=== PATIENT | female | born 1995 | race American Indian/Alaskan Native ===

== ENCOUNTER 2018-12-06 12:17 | Emergency (ER) | payer MEDICAID, OTHER ==
[2018-12-06 13:24] LABS: Bacteria,Urine 2+ /HPF (Negative); Bilirubin,Urine NEG (Negative); Blood,Urine NEG (Negative); Color,Urine Yellow (Yellow); Mucus,Urine FEW /HPF; Protein,Urine <15 mg/dL mg/dL (Negative); Urobilinogen,Urine < 2.0 mg/dL (<2.0)
[2018-12-06 13:28] LABS: HCG Qualitative,Urine Negative (Negative)
--- NOTE | 2018-12-06 14:15 | Emergency Department Report ---
ED Female HPI - General Chief complaint: Urogenital-Female Stated complaint: VAGINAL DISCHARGE/ABD PAIN/CRAMPS Time Seen by Provider: 12/06/18 14:02 Source: patient Mode of arrival: Ambulatory Limitations: No Limitations - History of Present Illness Initial comments: This is a 23-year-old female nontoxic, well nourished in appearance, no acute signs of distress presents to the ED with c/o of vaginal discharge. Patient denies any vaginal pain or swelling. Patient denies any vaginal ulcers or lesions. Patient denies any abdominal or pelvic pain. Patient denies any nausea, vomiting, chest pain, shortness of breathe, fever, chills, headache, back pain, numbness, tingling, stiff neck. Patient denies any urinary symptoms. Patient denies any allergies or PMH. MD Complaint: vaginal discharge, possible STD -: week(s) Severity scale (0 -10): 0 Improves with: none Worsens with: none Are you Now?: No Associated Symptoms: vaginal discharge. denies: vaginal bleeding, abdominal pain, nausea/vomiting, fever/chills, headaches, loss of appetite, dysuria, hematuria, rash, seizure, shortness of breath, syncope, weakness - Related Data Sexually active: Yes Previous Rx's Medication Instructions Recorded Last Taken Type metroNIDAZOLE [Flagyl] 500 mg PO Q12HR #14 tab 12/06/18 Unknown Rx Allergies Allergy/AdvReac Type Severity Reaction Status Date / Time No Known Allergies Allergy Verified 12/22/14 09:17 ED Review of Systems ROS: Stated complaint: VAGINAL DISCHARGE/ABD PAIN/CRAMPS Other details as noted in HPI Constitutional: denies: chills, fever Eyes: denies: eye pain, eye discharge, vision change ENT: denies: ear pain, throat pain Respiratory: denies: cough, shortness of breath, wheezing Cardiovascular: denies: chest pain, palpitations Endocrine: no symptoms reported Gastrointestinal: denies: abdominal pain, nausea, diarrhea Genitourinary: discharge. denies: urgency, dysuria Musculoskeletal: denies: back pain, joint swelling, arthralgia Skin: denies: rash, lesions Neurological: denies: headache, weakness, paresthesias Psychiatric: denies: anxiety, depression Hematological/Lymphatic: denies: easy bleeding, easy bruising ED Past Medical Hx - Past Medical History Previous Medical History?: No - Surgical History Past Surgical History?: Yes Additional Surgical History: - Social History Smoking Status: Never Smoker Substance Use Type: None - Medications Home Medications: Home Medications Medication Instructions Recorded Confirmed Last Taken Type metroNIDAZOLE [Flagyl] 500 mg PO Q12HR #14 tab 12/06/18 Unknown Rx ED Physical Exam - General Limitations: No Limitations General appearance: alert, in no apparent distress - Head Head exam: Present: atraumatic, normocephalic - Eye Eye exam: Present: normal appearance - Neck Neck exam: Present: normal inspection, full ROM - Respiratory Respiratory exam: Present: normal lung sounds bilaterally. Absent: respiratory distress, wheezes, rales, rhonchi, stridor, chest wall tenderness, accessory muscle use, decreased breath sounds, prolonged expiratory - Cardiovascular Cardiovascular Exam: Present: regular rate, normal rhythm, normal heart sounds. Absent: bradycardia, tachycardia, irregular rhythm, systolic murmur, diastolic murmur, rubs, gallop - GI/Abdominal GI/Abdominal exam: Present: soft, normal bowel sounds. Absent: distended, tenderness, guarding, rebound, rigid, diminished bowel sounds - External exam: Present: normal external exam, other (utilities operator Marion manager multicultural present during exam). Absent: erythema, swelling, lesions, lacerations, ecchymosis, bleeding Speculum exam: Present: cervical discharge, other (utilities operator [place] manager multicultural present during exam). Absent: erythema, vaginal discharge, vaginal bleeding, foreign body, tissue, laceration Bi-manual exam: Present: normal bi-manual exam, other (utilities operator [place] pa ramedic present during exam). Absent: cervical motion tendernes, adnexal tenderness, adnexal mass, uterine enlargement, uterine tenderness - Extremities Exam Extremities exam: Present: normal inspection, full ROM, normal capillary refill - Back Exam Back exam: Present: normal inspection, full ROM. Absent: tenderness, CVA tenderness (R), CVA tenderness (L), muscle spasm, paraspinal tenderness, vertebral tenderness, rash noted - Neurological Exam Neurological exam: Present: alert, oriented X3 - Psychiatric Psychiatric exam: Present: normal affect, normal mood - Skin Skin exam: Present: warm, dry, intact, normal color. Absent: rash ED Course Vital Signs 12/06/18 12:34 Temperature 98.4 F Pulse Rate 81 Respiratory 16 Rate Blood Pressure 115/61 O2 Sat by Pulse 98 Oximetry - Reevaluation(s) Reevaluation #1: 12/06/18 14:18 Patient is speaking in full sentences with no signs of distress noted. ED Medical Decision Making - Medical Decision Making This is a 23-year-old female that presents with possible STD and Trichomonas. Patient is stable was examined by me. There is no abdominal tenderness. No pelvic pain. UA obtained. Wet prep obtained. Gonorrhea chlamydia swab pending. Patient was instructed to return in 3-5 days for GC results. Patient wanted empirical treatment so patient received 250 mg Rocephin and 1 g of azithromycin by mouth. Patient was instructed to Follow-up with a primary care doctor in 3-5 days or if symptoms worsen and continue return to emergency room as soon as possible. At time of discharge, the patient does not seem toxic or ill in appearance. No acute signs of distress noted. Patient agrees to discharge treatment plan of care. No further questions noted by the patient. Critical care attestation.: If time is entered above; I have spent that time in minutes in the direct care of this critically ill patient, excluding procedure time. ED Disposition Clinical Impression: Trichomonas vaginitis, Possible exposure to STD Disposition: DC-01 TO HOME OR SELFCARE Is pt being admited?: No Does the pt Need Aspirin: No Condition: Stable Instructions: Trichomoniasis (ED), Safe Sex (ED) Additional Instructions: Follow-up with a primary care doctor in 3-5 days or if symptoms worsen and continue return to emergency room as soon as possible. Return in 3-5 daysfor gonorrhea chlamydia results. Do not consume any alcohol while taking Flagyl. Prescriptions: metroNIDAZOLE [Flagyl] 500 mg PO Q12HR #14 tab Referrals: JULIENNE MCELROY [Primary Care Provider] - 3-5 Days PRIMARY CAREMD [Referring] - 3-5 Days ABY MORALES MD [Staff Physician] - 3-5 Days [facility] [Outside] - 3-5 Days [facility] [Outside] - 3-5 Days Forms: Work/School Release Form(ED)
[2018-12-06] MEDS ORDERED: ROCEPHIN IM ONE (15:05)
[2018-12-06] MEDS ORDERED: XYLOCAINE 1% MPF 5 mL INFILTRATI ONE (15:05)
[2018-12-06] MEDS ORDERED: ZITHROMAX PO ONE (15:05)
[2018-12-06 15:33] VITALS: BP 115/61
== END 2018-12-06 16:08 | disposition home or self-care (01) ==
LOC: ED 12:17
DX: A59.01 Trichomonal vulvovaginitis (principal)
CPT/HCPCS: 81001; 81025; 87210; 87591; 96372; 99284; J0696

== ENCOUNTER 2019-04-11 09:19 | Emergency (ER) | payer SELFPAY ==
[2019-04-11 09:27] VITALS: BP 132/47
--- NOTE | 2019-04-11 09:54 | Emergency Department Report ---
ED Female HPI - General Chief complaint: Abdominal Pain Stated complaint: ABD PAIN Time Seen by Provider: 04/11/19 09:51 Source: patient Mode of arrival: Ambulatory Limitations: No Limitations - History of Present Illness Initial comments: Is is a 23-year-old -[place] female who presents to the emergency room with pelvic cramping and vaginal discharge for 2 weeks. Last menstrual period was 03/25/2019, A2. Patient reports a history of irregular menses. She reports foul-smelling white vaginal discharge, urinary frequency. She denies dysuria, nausea, vomiting, diarrhea, or radiating pain. MD Complaint: vaginal discharge, pelvic pain, possible STD Onset/Timin -: week(s) Location: suprapubic Radiation: non-radiating Severity: mild Severity scale (0 -10): 4 Quality: cramping Consistency: intermittent Improves with: none Worsens with: none Are you Now?: No Last Menstrual Period: 03/25/19 EDC: 12/30/19 Associated Symptoms: vaginal discharge, abdominal pain. denies: vaginal bleeding, nausea/vomiting, fever/chills, headaches, loss of appetite, dysuria, hematuria, rash, seizure, shortness of breath, syncope, weakness - Related Data Sexually active: Yes : 2 Para: 0 A: 2 Previous Rx's Medication Instructions Recorded Last Taken Type metroNIDAZOLE [Flagyl] 500 mg PO Q12HR #14 tab 12/06/18 Unknown Rx Fluconazole [Diflucan TAB] 150 mg PO ONCE #1 tablet 04/11/19 Unknown Rx metroNIDAZOLE [Flagyl TAB] 500 mg PO Q12HR #14 tab 04/11/19 Unknown Rx Allergies Allergy/AdvReac Type Severity Reaction Status Date / Time No Known Allergies Allergy Verified 12/22/14 09:17 ED Review of Systems ROS: Stated complaint: ABD PAIN Other details as noted in HPI Constitutional: denies: chills, fever Respiratory: denies: cough, shortness of breath, wheezing Cardiovascular: denies: chest pain, palpitations Gastrointestinal: abdominal pain. denies: nausea, diarrhea Genitourinary: discharge. denies: urgency, dysuria Neurological: denies: headache, weakness, paresthesias Psychiatric: denies: anxiety, depression ED Past Medical Hx - Past Medical History Previous Medical History?: No - Surgical History Past Surgical History?: Yes Additional Surgical History: - Social History Smoking Status: Never Smoker Substance Use Type: Alcohol - Medications Home Medications: Home Medications Medication Instructions Recorded Confirmed Last Taken Type metroNIDAZOLE [Flagyl] 500 mg PO Q12HR #14 tab 12/06/18 Unknown Rx Fluconazole [Diflucan TAB] 150 mg PO ONCE #1 tablet 04/11/19 Unknown Rx metroNIDAZOLE [Flagyl TAB] 500 mg PO Q12HR #14 tab 04/11/19 Unknown Rx ED Physical Exam - General Limitations: No Limitations General appearance: alert, in no apparent distress - Respiratory Respiratory exam: Present: normal lung sounds bilaterally. Absent: respiratory distress - Cardiovascular Cardiovascular Exam: Present: regular rate, normal rhythm. Absent: systolic murmur, diastolic murmur, rubs, gallop - GI/Abdominal GI/Abdominal exam: Present: soft, normal bowel sounds. Absent: distended, tenderness, guarding, rebound, rigid, organomegaly, mass, bruit, pulsatile mass - Back Exam Back exam: Absent: CVA tenderness (R), CVA tenderness (L) - Neurological Exam Neurological exam: Present: alert, oriented X3, normal gait - Psychiatric Psychiatric exam: Present: normal affect, normal mood - Skin Skin exam: Present: warm, dry, intact, normal color. Absent: rash ED Course Vital Signs 04/11/19 04/11/19 09:24 09:41 Temperature 98 F Pulse Rate 84 Respiratory 18 16 Rate Blood Pressure 132/47 O2 Sat by Pulse 98 Oximetry ED Medical Decision Making - Lab Data Lab Results 04/11/19 Range/Units 10:17 Urine Color Yellow (Yellow) Urine Turbidity Hazy (Clear) Urine pH 7.0 (5.0-7.0) Ur Specific [place] 1.024 (1.003-1.030) Urine Protein <15 mg/dl (Negative) mg/dL Urine Glucose (UA) Neg (Negative) mg/dL Urine Ketones Neg (Negative) mg/dL Urine Blood Neg (Negative) Urine Nitrite Neg (Negative) Ur Reducing Substances Not Reportable Urine Bilirubin Neg (Negative) Urine Ictotest Not Reportable Urine Urobilinogen 2.0 (<2.0) mg/dL Ur Leukocyte Esterase Neg (Negative) Urine WBC (Auto) 1.0 (0.0-6.0) /HPF Urine RBC (Auto) 1.0 (0.0-6.0) /HPF U Epithel Cells (Auto) 1.0 (0-13.0) /HPF Amorphous Crystals 1+ Urine Mucus 3+ /HPF Urine HCG, Qual Negative (Negative) - Medical Decision Making This is a 23-year-old -[place] female who presents with vaginal discharge for 2 weeks. Patient was examined by me. Vitals are stable and in no acute distress. A pelvic exam was performed, wet prep and gonorrhea and chlamydia obtained. Wet prep positive for clue cells and yeast. Urinalysis and urine tests are unremarkable. Patient will be treated for bacterial vaginitis and candidiasis. Start metronidazole and diflucan. Discharged home in stable condition. Discussed prevention options. F/U with PCP or Health Department. Critical care attestation.: If time is entered above; I have spent that time in minutes in the direct care of this critically ill patient, excluding procedure time. ED Disposition Clinical Impression: Vaginal discharge, Pelvic pain, Bacterial vaginitis, Yeast infection of the vagina Disposition: TO HOME OR SELFCARE Is pt being admited?: No Does the pt Need Aspirin: No Condition: Stable Instructions: Abdominal Pain (ED), Bacterial Vaginosis (ED), Vulvovaginal Candidiasis (ED) Additional Instructions: Avoid drinking alcohol while taking antibiotics and for 24 hours after completion. Continue safe sexual intercourse. Follow up with Primary Care Provider or health department. Prescriptions: Fluconazole [Diflucan TAB] 150 mg PO ONCE #1 tablet metroNIDAZOLE [Flagyl TAB] 500 mg PO Q12HR #14 tab Referrals: [facility] [Outside] - 3-5 Days [facility] [Provider Group] - 3-5 Days [facility] [Provider Group] - 3-5 Days Forms: STI Treatment and Prevention Time of Disposition: 11:37
[2019-04-11 10:39] LABS: HCG Qualitative,Urine Negative (Negative)
[2019-04-11 11:24] LABS: Amorphous Crystals,Urine 1+; Bilirubin,Urine NEG (Negative); Blood,Urine NEG (Negative); Color,Urine Yellow (Yellow); Mucus,Urine 3+ /HPF; Protein,Urine <15 mg/dL mg/dL (Negative)
== END 2019-04-11 11:49 | disposition home or self-care (01) ==
LOC: ED 09:19
DX: N76.0 Acute vaginitis (principal); B96.89 Other specified bacterial agents as the cause of diseases classified elsewhere
CPT/HCPCS: 81001; 81025; 87210; 87591; 99284

== ENCOUNTER 2019-08-22 10:27 | Emergency (ER) | payer SELFPAY ==
[2019-08-22 10:57] VITALS: BP 119/74
--- NOTE | 2019-08-22 11:31 | Emergency Department Report ---
ED Female HPI - General Chief complaint: Vaginal Bleeding Stated complaint: ABD PAIN/POSITIVE PREG TEST Time Seen by Provider: 08/22/19 10:54 Source: patient Mode of arrival: Ambulatory Limitations: No Limitations - History of Present Illness Initial comments: 23-year-old female presents to the hospital complaining of positive test and vaginal bleeding. Patient had a positive home test yesterday with LMP July 08. Since yesterday patient has had mild intermittent suprapubic cramping abdominal pain and vaginal spotting. 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 Pt is 6 weeks and 3 days by dates. Patient's DEVELOPER ANALYST is not affiliated as per patient. - Related Data Previous Rx's Medication Instructions Recorded Last Taken Type metroNIDAZOLE [Flagyl] 500 mg PO Q12HR #14 tab 12/06/18 Unknown Rx Fluconazole [Diflucan TAB] 150 mg PO ONCE #1 tablet 04/11/19 Unknown Rx metroNIDAZOLE [Flagyl TAB] 500 mg PO Q12HR #14 tab 04/11/19 Unknown Rx Ibuprofen [Motrin] 600 mg PO Q8H PRN #30 tablet 08/22/19 Unknown Rx Allergies Allergy/AdvReac Type Severity Reaction Status Date / Time No Known Allergies Allergy Verified 08/22/19 10:29 ED Review of Systems ROS: Stated complaint: ABD PAIN/POSITIVE PREG TEST Other details as noted in HPI Comment: All other systems reviewed and negative ED Past Medical Hx - Past Medical History Previous Medical History?: No - Surgical History Additional Surgical History: - Social History Smoking Status: Never Smoker Substance Use Type: Alcohol - Medications Home Medications: Home Medications Medication Instructions Recorded Confirmed Last Taken Type metroNIDAZOLE [Flagyl] 500 mg PO Q12HR #14 tab 12/06/18 Unknown Rx Fluconazole [Diflucan TAB] 150 mg PO ONCE #1 tablet 04/11/19 Unknown Rx metroNIDAZOLE [Flagyl TAB] 500 mg PO Q12HR #14 tab 04/11/19 Unknown Rx Ibuprofen [Motrin] 600 mg PO Q8H PRN #30 tablet 08/22/19 Unknown Rx ED Physical Exam - General Limitations: No Limitations - Other Other exam information: Gen.: No acute distress Head: Atraumatic Eyes: Normal appearance ENT: Moist mucous membranes Neck: Normal appearance, no posterior midline tenderness, no meningismus Chest: Clear to auscultation bilaterally Cardiovascular: Regular rate and rhythm Abdomen: Normal appearance, soft, mild suprapubic tenderness, no rebound or guarding, normal bowel sounds Back: Normal appearance, nontender Extremity: Full range of motion, normal appearance Neuro: Alert, clear speech, no focal motor or sensory deficit Psychiatric: Appropriate Skin: No rash ED Course Vital Signs 08/22/19 10:30 Temperature 97.7 F Pulse Rate 85 Respiratory 18 Rate Blood Pressure 119/74 [Right] O2 Sat by Pulse 95 Oximetry ED Medical Decision Making - Lab Data Result diagrams: 08/22/19 11:56 Lab Results 08/22/19 08/22/19 08/22/19 Range/Units 11:10 11:10 11:56 WBC 7.9 (4.5-11.0) K/mm3 RBC 4.28 (3.65-5.03) M/mm3 Hgb 11.4 (10.1-14.3) gm/dl Hct 35.2 (30.3-42.9) % MCV 82 (79-97) fl MCH 27 L (28-32) pg MCHC 33 (30-34) % RDW 14.9 (13.2-15.2) % Plt Count 220 (140-440) K/mm3 Lymph % (Auto) Surgical Oncologist [place] % (Auto) Surgical Oncologist Eos % (Auto) Surgical Oncologist Baso % (Auto) Surgical Oncologist Lymph # Surgical Oncologist [place] # Surgical Oncologist Eos # Surgical Oncologist Baso # Surgical Oncologist Seg Neutrophils % Surgical Oncologist Seg Neutrophils # Surgical Oncologist HCG, Quant < 2 (0-4) mIU/mL Blood Type O POSITIVE Antibody Screen Negative - Medical Decision Making neg hcg minimal pain Diagnosis of miscarriage versus false positive test f/u advised motrin prn pain o+ blood type - Differential Diagnosis miscarriage, ectopic, menses, threatened miscarriage Critical Care Time: No Critical care attestation.: If time is entered above; I have spent that time in minutes in the direct care of this critically ill patient, excluding procedure time. ED Disposition Clinical Impression: Vaginal spotting, Negative test Disposition: TO HOME OR SELFCARE Is pt being admited?: Yes Condition: Stable Instructions: Spontaneous Miscarriage (ED), Menstruation (ED) Additional Instructions: Take the medication as prescribed. Follow-up with your doctor or with the doctor/clinic provided. Return if symptoms worsen as indicated by your discharge instructions. Prescriptions: Ibuprofen [Motrin] 600 mg PO Q8H PRN #30 tablet PRN Reason: Pain Referrals: PRIMARY CARE, [Primary Care Provider] - 3-5 Days ETHAN CASTILLO MD [Staff Physician] - 3-5 Days (og/fiber optic technician ) Time of Disposition: 12:28
[2019-08-22 12:17] LABS: Hematocrit 35.2 % (30.3-42.9); Hemoglobin 11.4 gm/dl (10.1-14.3); Mean Corpuscular HGB Conc 33 % (30-34); Mean Corpuscular Volume 82 fl (79-97); Platelet Count 220 K/mm3 (140-440); Red Blood Count 4.28 M/mm3 (3.65-5.03); Red Cell Distribution Width 14.9 % (13.2-15.2)
[2019-08-22 13:38] LABS: Total Cells Counted 100
[2019-08-22 13:39] LABS: Anisocytosis 1+; Large Platelets Few
== END 2019-08-22 12:42 | disposition home or self-care (01) ==
LOC: ED 10:27
DX: N93.9 Abnormal uterine and vaginal bleeding, unspecified (principal); Z79.899 Other long term (current) drug therapy; Z32.02 Encounter for pregnancy test, result negative
CPT/HCPCS: 36415; 84702; 85007; 85025; 86850; 86900; 86901

== ENCOUNTER 2021-11-25 14:12 | Emergency (ER) | payer SELFPAY ==
[2021-11-25 14:51] LABS: Basophils % (Auto) 0.4 % (0.0-1.8); Eosinophils # (Auto) 0.1 K/mm3 (0.0-0.4); Eosinophils % (Auto) 0.7 % (0.0-4.3); Hematocrit 34.4 % (30.3-42.9); Hemoglobin 10.9 gm/dl (10.1-14.3); Lymphocytes % (Auto) 11.5 % (13.4-35.0); Mean Corpuscular HGB Conc 32 % (30-34); Mean Corpuscular Volume 79 fl (79-97); Monocytes # (Auto) 0.9 K/mm3 (0.0-0.8); Monocytes % (Auto) 10.2 % (0.0-7.3); Platelet Count 245 K/mm3 (140-440); Red Blood Count 4.36 M/mm3 (3.65-5.03); Red Cell Distribution Width 15.5 % (13.2-15.2)
[2021-11-25 15:13] LABS: BUN/Creatinine Ratio 10; Blood Urea Nitrogen 8 mg/dL (7-17); Calcium 9.3 mg/dL (8.4-10.2); Hemolysis Index 4
[2021-11-25] MEDS ORDERED: POTASSIUM CHLORIDE ER 20 MEQ TAB PO ONE (15:15)
[2021-11-25 15:45] LABS: Bacteria,Urine 1+ /HPF (Negative); Bilirubin,Urine NEG (Negative); Blood,Urine NEG (Negative); Color,Urine Yellow (Yellow); Mucus,Urine 3+ /HPF; Protein,Urine <15 mg/dL mg/dL (Negative); Urobilinogen,Urine < 2.0 mg/dL (<2.0)
[2021-11-25 15:56] LABS: HCG Qualitative,Urine Negative (Negative)
--- NOTE | 2021-11-25 16:13 | Emergency Department Report ---
ED General Adult HPI - General Chief complaint: Abdominal Pain Stated complaint: ABD PAIN Time Seen by Provider: 11/25/21 14:28 Source: patient Mode of arrival: Ambulatory Limitations: No Limitations - History of Present Illness Initial comments: 26-year-old -[place] female patient presents with complaints of lower abdominal pain and vaginal discharge x2 weeks. She states the discharge is a white milky consistency and not odorous. She denies any dysuria/hematuria/urinary frequency, dyspareunia, vaginal bleeding, or fever/chills/sweats. She rates her current pain as a 5/10 in severity and states it is intermittent and cramping in nature. No past medical history per patient. She denies the pain radiating into her back or in her flank area. NKDA per patient - Related Data Previous Rx's Medication Instructions Recorded Last Taken Type metroNIDAZOLE [Flagyl] 500 mg PO Q12HR #14 tab 12/06/18 Unknown Rx Fluconazole (Nf) [Diflucan TAB] 150 mg PO ONCE #1 tablet 04/11/19 Unknown Rx metroNIDAZOLE [Flagyl TAB] 500 mg PO Q12HR #14 tab 04/11/19 Unknown Rx Ibuprofen [Motrin] 600 mg PO Q8H PRN #30 tablet 08/22/19 Unknown Rx Doxycycline Monohydrate 100 mg PO BID 14 Days #28 cap 11/25/21 Unknown Rx [Doxycycline Monohydrate CAP] Fluconazole [Diflucan TAB] 200 mg PO QDAY PRN #1 tablet 11/25/21 Unknown Rx metroNIDAZOLE [Flagyl] 500 mg PO Q12HR 7 Days #14 tab 11/25/21 Unknown Rx Allergies Allergy/AdvReac Type Severity Reaction Status Date / Time No Known Allergies Allergy Verified 08/22/19 10:29 ED Review of Systems ROS: Stated complaint: ABD PAIN Other details as noted in HPI Constitutional: denies: chills, fever Respiratory: denies: cough, shortness of breath Cardiovascular: denies: chest pain Gastrointestinal: abdominal pain. denies: nausea, vomiting, diarrhea, constipation, hematemesis, melena Genitourinary: as per HPI Skin: denies: change in color Neurological: denies: headache Hematological/Lymphatic: denies: swollen glands ED Past Medical Hx - Past Medical History Previous Medical History?: No - Surgical History Past Surgical History?: No Additional Surgical History: - Social History Smoking Status: Never Smoker Substance Use Type: Alcohol - Medications Home Medications: Home Medications Medication Instructions Recorded Confirmed Last Taken Type metroNIDAZOLE [Flagyl] 500 mg PO Q12HR #14 tab 12/06/18 Unknown Rx Fluconazole (Nf) [Diflucan TAB] 150 mg PO ONCE #1 tablet 04/11/19 Unknown Rx metroNIDAZOLE [Flagyl TAB] 500 mg PO Q12HR #14 tab 04/11/19 Unknown Rx Ibuprofen [Motrin] 600 mg PO Q8H PRN #30 tablet 08/22/19 Unknown Rx Doxycycline Monohydrate 100 mg PO BID 14 Days #28 cap 11/25/21 Unknown Rx [Doxycycline Monohydrate CAP] Fluconazole [Diflucan TAB] 200 mg PO QDAY PRN #1 tablet 11/25/21 Unknown Rx metroNIDAZOLE [Flagyl] 500 mg PO Q12HR 7 Days #14 tab 11/25/21 Unknown Rx ED Physical Exam - General Limitations: No Limitations General appearance: alert, in no apparent distress - Head Head exam: Present: atraumatic, normocephalic - Eye Eye exam: Present: normal appearance - Neck Neck exam: Present: normal inspection - Respiratory Respiratory exam: Absent: respiratory distress - Cardiovascular Cardiovascular Exam: Present: regular rate - GI/Abdominal GI/Abdominal exam: Present: soft, tenderness (Mild), normal bowel sounds. Absent: distended, guarding, rebound, rigid - Back Exam Back exam: Absent: CVA tenderness (R), CVA tenderness (L) - Neurological Exam Neurological exam: Present: alert, oriented X3, normal gait - Psychiatric Psychiatric exam: Present: normal affect, normal mood - Skin Skin exam: Present: warm, dry, intact, normal color. Absent: rash ED Course Vital Signs 11/25/21 11/25/21 14:19 14:47 Temperature 97.9 F Pulse Rate 65 Respiratory 16 Rate Blood Pressure 82/66 134/66 [Right] O2 Sat by Pulse 98 Oximetry ED Medical Decision Making - Lab Data Result diagrams: 11/25/21 14:40 11/25/21 14:40 Lab Results 11/25/21 11/25/21 11/25/21 Range/Units 14:40 14:40 Unknown WBC 8.6 (4.5-11.0) K/mm3 RBC 4.36 (3.65-5.03) M/mm3 Hgb 10.9 (10.1-14.3) gm/dl Hct 34.4 (30.3-42.9) % MCV 79 (79-97) fl MCH 25 L (28-32) pg MCHC 32 (30-34) % RDW 15.5 H (13.2-15.2) % Plt Count 245 (140-440) K/mm3 Lymph % (Auto) 11.5 L (13.4-35.0) % Angelina % (Auto) 10.2 H (0.0-7.3) % Eos % (Auto) 0.7 (0.0-4.3) % Baso % (Auto) 0.4 (0.0-1.8) % Lymph # (Auto) 1.0 L (1.2-5.4) K/mm3 Angelina # (Auto) 0.9 H (0.0-0.8) K/mm3 Eos # (Auto) 0.1 (0.0-0.4) K/mm3 Baso # (Auto) 0.0 (0.0-0.1) K/mm3 Seg Neutrophils % 77.2 H (40.0-70.0) % Seg Neutrophils # 6.6 (1.8-7.7) K/mm3 Sodium 133 L (137-145) mmol/L Potassium 3.3 L (3.6-5.0) mmol/L Chloride 98.1 (98-107) mmol/L Carbon Dioxide 25 (22-30) mmol/L Anion Gap 13 mmol/L BUN 8 (7-17) mg/dL Creatinine 0.8 (0.6-1.2) mg/dL Estimated GFR > 60 ml/min BUN/Creatinine Ratio 10 % Glucose 86 (65-100) mg/dL Calcium 9.3 (8.4-10.2) mg/dL Urine Color Yellow (Yellow) Urine Turbidity Cloudy (Clear) Urine pH 5.0 (5.0-7.0) Ur Specific [place] 1.019 (1.003-1.030) Urine Protein <15 mg/dl (Negative) mg/dL Urine Glucose (UA) Neg (Negative) mg/dL Urine Ketones Neg (Negative) mg/dL Urine Blood Neg (Negative) Urine Nitrite Neg (Negative) Urine Bilirubin Neg (Negative) Urine Urobilinogen < 2.0 (<2.0) mg/dL Ur Leukocyte Esterase Tr (Negative) Urine WBC (Auto) 9.0 H (0.0-6.0) /HPF Urine RBC (Auto) 1.0 (0.0-6.0) /HPF U Epithel Cells (Auto) 34.0 H (0-13.0) /HPF Urine Bacteria (Auto) 1+ (Negative) /HPF Urine Mucus 3+ /HPF Urine HCG, Qual Negative (Negative) - Medical Decision Making 26-year-old -[place] female patient presents with complaints of lower abdominal pain and vaginal discharge x2 weeks. She states the discharge is a white milky consistency and not odorous. She denies any dysuria/hematuria/uri nary frequency, dyspareunia, vaginal bleeding, or fever/chills/sweats. She rates her current pain as a 5/10 in severity and states it is intermittent and cramping in nature. No past medical history per patient. She denies the pain radiating into her back or in her flank area. NKDA per patient Blood pressure initially 88/66. Blood work is normal. Repeat blood pressure is 134/66. UA shows 9 WBCs. Patient declined pelvic exam. Given symptoms, will cover for PID. Recommend she follows up with her primary care doctor, an urgent care, or the health department for full STI testing. Patient also informed to have her partner tested and treated and to refrain from any sexual intercourse f or 3 weeks minimum. She is otherwise well-appearing and her vitals are normal. Patient is stable for discharge home. Discussed in detail signs and symptoms that should prompt immediate return to the ED, she verbalizes understanding Critical care attestation.: If time is entered above; I have spent that time in minutes in the direct care of this critically ill patient, excluding procedure time. ED Disposition Clinical Impression: Vaginal discharge, Pelvic pain Disposition: HOME / SELF CARE / HOMELESS Is pt being admited?: No Condition: Stable Instructions: Abdominal Pain (ED), Pelvic Pain, Female, [id number], Pelvic Inflammatory Disease, [id number] Additional Instructions: I recommend you take a daily probiotic Prescriptions: Fluconazole [Diflucan TAB] 200 mg PO QDAY PRN #1 tablet PRN Reason: yeast infection Doxycycline Monohydrate [Doxycycline Monohydrate CAP] 100 mg PO BID 14 Days #28 cap metroNIDAZOLE [Flagyl] 500 mg PO Q12HR 7 Days #14 tab Referrals: [facility] [Provider Group] - 3-5 Days [facility] [Outside] - 2-3 Days (STD testing) Forms: Work/School Release Form(ED)
[2021-11-25 17:09] VITALS: BP 124/78
[2021-11-25] MEDS ORDERED: LIDOCAINE-MPF (1%) 10 MG/1 ML VIAL 5 ML INFILTRATI ONE (17:31)
== END 2021-11-25 18:54 | disposition home or self-care (01) ==
LOC: ED 14:12
DX: N89.8 Other specified noninflammatory disorders of vagina (principal); R10.2 Pelvic and perineal pain; F10.20 Alcohol dependence, uncomplicated
CPT/HCPCS: 36415; 80048; 81001; 81025; 85025; 87086; 99283; J0696; J3490